=== PATIENT | female | born 1965 | race African-American/Black ===

== ENCOUNTER 2017-06-04 08:00 | Outpatient (CLI) | payer BC, OTHER ==
[2017-06-04] MEDS ORDERED: Gadobenate Dimeglumine 529 MG/1 ML (20ML VIAL) ONE (12:22)
== END 2017-06-04 08:01 | disposition home or self-care (01) ==
LOC: BICMRI 08:00
PROVIDERS: ATTEND Orthopaedic Surgery Hand Surgery
DX: M67.431 Ganglion, right wrist (principal)
CPT/HCPCS: A9579

== ENCOUNTER 2017-06-08 09:32 | Outpatient (CLI) | payer BC, OTHER ==
[2017-06-08 11:15] LABS: #Basophils 0.1 thou/uL (0.0-0.2); #Eosinphils 0.2 thou/uL (0.0-0.7); #Lymphocytes 1.5 thou/uL (1.20-3.40); #Monocytes 0.5 thou/uL (0.11-0.59); #Neutrophils 3.8 thou/uL (1.40-6.50); %Basophils 1.4 % (0.0-1.0); %Eosinophils 2.7 % (0.0-10.0); %Lymphocytes 25.3 % (21.0-51.0); %Monocytes 7.8 % (0.0-10.0); %Neutrophils 62.8 % (42.0-75.0); Hemoglobin 12.9 g/dL (12.0-16.0); Mean Corpuscular HGB CONC 33.2 g/dL (32.0-36.0); Mean Corpuscular Hemoglobin 30.8 pg (27.0-31.0); Mean Corpuscular Volume 92.7 fl (81.0-99.0); Mean Platelet Volume 7.4 fL (7.4-10.4); Platelet Count 260 thou/uL (130-400); RBC Distribution Width 11.7 % (11.5-14.5); Red Blood Cell (RBC) Count 4.17 mill/uL (4.20-5.40)
[2017-06-08 11:31] LABS: Anion Gap 13 mmol/L (10-20); BUN (Urea Nitrogen) 13 mg/dL (9.8-20.1); Calc. Creatinine Clearance 0 mL/min (70-130); Calcium 9.8 mg/dL (7.8-10.44); Carbon Dioxide 28 mmol/L (22-29); Chloride 103 mmol/L (98-107); Estimated GFR-MDRD 88; Glucose 95 mg/dL (70-105); Potassium 3.9 mmol/L (3.5-5.1); Sodium 140 mmol/L (136-145)
--- NOTE | 2017-06-10 00:48 | EKG ---
Test Reason : Blood Pressure : / mmHG Vent. Rate : 071 BPM Atrial Rate : 071 BPM P-R Int : 154 ms QRS Dur : 070 ms QT Int : 372 ms P-R-T Axes : 061 041 034 degrees QTc Int : 404 ms Normal sinus rhythm Normal ECG No previous ECGs available Confirmed by JOSE ARMANDO RG, DR. Calvin ([id number]) on 06/10/2017 12:48:24 AM Referred By: ANDREIA Confirmed By:DR. Marixa SUÁREZ MD
== END 2017-06-08 09:33 | disposition home or self-care (01) ==
LOC: LABBT 09:32
PROVIDERS: ATTEND Orthopaedic Surgery Hand Surgery
DX: Z01.812 Encounter for preprocedural laboratory examination (principal); M67.40 Ganglion, unspecified site
CPT/HCPCS: 80048; 85025; 93005; 93010

== ENCOUNTER 2017-06-11 09:18 | Day surgery (SDC) | payer BC, OTHER ==
[2017-06-08 09:58] VITALS: BMI 28.8
[2017-06-11] MEDS ORDERED: CEFAZOLIN/Water 2 GM/20 ML SYRINGE ONE (10:13)
[2017-06-11] MEDS ORDERED: EPINEPHrine 1 MG/ML AMP ONE (12:22)
[2017-06-11] MEDS ORDERED: Bupivacaine PF 0.5% 30 ML VIAL ONE (12:22)
[2017-06-11] MEDS ORDERED: Fentanyl 100 MCG/2 ML VIAL ONE (12:24)
[2017-06-11] MEDS ORDERED: Midazolam HCl 2 mg/2 ml Vial ONE (12:24)
[2017-06-11] MEDS ORDERED: Dexamethasone 20 MG/5 ML VIAL ONE (13:20)
[2017-06-11] MEDS ORDERED: Propofol 200 MG/20 ML VIAL ONE (13:20)
[2017-06-11] MEDS ORDERED: Ketorolac Tromethamine 30 MG/ML VIAL ONE ×2 (13:20→14:05)
[2017-06-11] MEDS ORDERED: Lidocaine 1% PF 5 ML VIAL ONE (13:20)
[2017-06-11] MEDS ORDERED: PHENYLEPHRINE-NS 100 MCG/ML 10 ML SYRINGE ONE (13:20)
[2017-06-11] MEDS ORDERED: Ondansetron HCl/PF 4 MG/2 ML Vial ONE (13:20)
[2017-06-11] MEDS ORDERED: Betamet Acet/Betamet Na Ph 30 MG/5 ML VIAL ONE (13:32)
--- NOTE | 2017-06-14 11:55 | OP ---
DATE OF SERVICE: 06/11/2017 PREOPERATIVE DIAGNOSIS: Right wrist large ganglion with superficial ulnar nerve compression. POSTOPERATIVE DIAGNOSIS: Right wrist large ganglion with superficial ulnar nerve compression with th e 4 cm ganglion depth emanating from the ulnocarpal/ulna triquetral joint and with a stalk communicat ing with the fibers of the superficial ulnar nerve, all covered with fascial covering of the mass on its ulnar aspect. PROCEDURES PERFORMED: 1. Arthrotomy wrist with synovectomy. 2. Neuroplasty of his ulnar nerve. 3. Removal, via excisional biopsy technique. 4. A 4 cm ganglion, ulnocarpal wrist joint. SPECIMEN SENT: 4 cm ganglion. TOURNIQUET TIME: 18 minutes. ESTIMATED BLOOD LOSS: 10 mL. FINDINGS: Ganglion with stalk to the ulnar aspect, ulnar triquetral joint as described above and sup erficial ulnar nerve within the fascia of this mass. ANESTHESIA: MAC anesthesia, general LMA technique, of 20 mL 0.5% Marcaine total, 8 given pres urgery and 12 given post closure. Splint was applied. DESCRIPTION OF PROCEDURE: After successful anesthesia listed above, the patient had the limb prepped and draped. Time-out done appropriately. The patient then had the mass outlined with zigzag incisi on and incision carried to skin and subcutaneous tissue to resolve the mass. A 360-degree circumfere ntial dissection around the mass was accomplished and then in the volar one quarter [place] the [place], we could see the superficial ulnar nerve caught in the fascia covering of the mass. We dissected this free and performed neuroplasty to protect the nerve. Once this was done, we then moved the mass dors ally away from the volar-ulnar region where the nerve was located, from the flexor carpi ul naris tendon and followed a stalk into the ulnar aspect of the ulnocarpal joint. We then made a 3 mm opening around the stalk, removed this mass completely and inserted a specimen. Through the opening which we made in the joint, we performed synovectomy of all synovitis that was protruding and then d eflated the tourniquet. We had excellent hemostasis. Silvadene was placed on superficial ulnar nerv e with neuroplasty accomplished. We then closed the wound with interrupted 4-0 Monocryl subcutaneous and epidermal closure with interrupted simple 4-0 nylon. Bulky dressing was applied with an ulnar g utter splint, MP joints free. The patient left the operating room without evidence of anesthetic com plication or operative complication.
== END 2017-06-11 15:35 | disposition home or self-care (01) ==
LOC: SDC 09:18
PROVIDERS: ATTEND Orthopaedic Surgery Hand Surgery
PROC: 0RBN0ZZ Excision of Right Wrist Joint, Open Approach (ICD-10-PCS; principal; 2017-06-11)
PROC: 01N40ZZ Release Ulnar Nerve, Open Approach (ICD-10-PCS; principal; 2017-06-11)
DX: M67.431 Ganglion, right wrist (principal); G56.21 Lesion of ulnar nerve, right upper limb; E78.5 Hyperlipidemia, unspecified; I10 Essential (primary) hypertension; Z79.899 Other long term (current) drug therapy; Z91.041 Radiographic dye allergy status; Z90.710 Acquired absence of both cervix and uterus
CPT/HCPCS: 96372; J0171; J0702; J1885; J2250; J3010; S0020

== ENCOUNTER 2017-06-11 18:49 | Emergency (ER) | payer BC, OTHER ==
[2017-06-11] MEDS ORDERED: Thrombin 5000 UNITS/5 ML VIAL ONE ×2 (21:28→22:36)
[2017-06-11] MEDS ORDERED: Sodium Chloride 0.9% 0 ML ONE (21:28)
[2017-06-11 21:54] LABS: #Monocytes 0.1 thou/uL (0.11-0.59); #Neutrophils 9.3 thou/uL (1.40-6.50); %Basophils 0.2 % (0.0-1.0); %Eosinophils 0.1 % (0.0-10.0); %Monocytes 0.6 % (0.0-10.0); %Neutrophils 89.1 % (42.0-75.0); Hemoglobin 13.3 g/dL (12.0-16.0); Mean Corpuscular HGB CONC 32.3 g/dL (32.0-36.0); Mean Corpuscular Hemoglobin 29.6 pg (27.0-31.0); Mean Corpuscular Volume 91.7 fl (81.0-99.0); Platelet Count 287 thou/uL (130-400); RBC Distribution Width 11.8 % (11.5-14.5); Red Blood Cell (RBC) Count 4.48 mill/uL (4.20-5.40); White Blood Cell (WBC) Count 10.4 thou/uL (4.8-10.8)
[2017-06-11 22:10] LABS: PTT 32.7 SEC (22.9-36.1)
[2017-06-11 22:14] LABS: ALT (SGPT) 19 U/L (8-55); AST (SGOT) 20 U/L (5-34); Albumin 4.4 g/dL (3.5-5.0); Alkaline Phosphatase 62 U/L (40-150); Anion Gap 16 mmol/L (10-20); BUN (Urea Nitrogen) 11 mg/dL (9.8-20.1); Bilirubin, Total 0.3 mg/dL (0.2-1.2); Calc. Creatinine Clearance 0 mL/min (70-130); Calcium 9.8 mg/dL (7.8-10.44); Carbon Dioxide 23 mmol/L (22-29); Chloride 104 mmol/L (98-107); Estimated GFR-MDRD 89; Globulin 3.1 g/dL (2.4-3.5); Glucose 139 mg/dL (70-105); Potassium 3.7 mmol/L (3.5-5.1); Protein, Total 7.5 g/dL (6.0-8.3); Sodium 139 mmol/L (136-145)
--- NOTE | 2017-06-12 08:05 | CON ---
DATE OF EMERGENCY ROOM NOTE: 06/11/2017 CHIEF COMPLAINT: Right leg wound. Patient returns to the hospital, reporting that over the 7-hour period since her surgery, which ended approximately 1300 hours today 06/11/2017 where she had a ganglion removed with a 3-mm hole left in the joint capsule, and at that point she had excellent hemostasis, but she noticed that she had some blood on her dressing, splint, and Juvencio wrap when she came to the hospital. After copious attempts to obtain hemostasis by Physician Certified Medical Asst Pollo, doing an excellent job at controlling bleeding, she still complained of an "inferior wound drip", not bright red blood and not a clot. She reported eddie t the patient had palpable ulnar and radial pulse distal to the incision and did not have edema or pa in, but she could not control this bleeding. I talked to KB Abad over the phone approximately 2115 hours and told her I would be there at appro ximately 2200 hours. EXAMINATION: I arrived at approximately 2215 hours to the emergency room, where she was in no distre ss, comfortable, and when I removed her dressed, then I noticed that every approximately 30 seconds, she had a drip of a slightly dark, but thinned blood consistent with serosanguineous posture from the inferior wound edge proximal to the last suture. It never came from any other spot. When I palpate d the wound with gloves on, it did not increase the flow or egress. There was no tension to include no stretch pain. power to the digits for all function to include digit flexion, extension, abd uction, and crossover. Patient also had normal pulses distal to the incision as well as no evidence of wound tension, swelling, indeed she has hardly any swelling compared to what would might be expect ed for postoperative day #0.5. The patient had not complained of numbness or tingling. ASSESSMENT AND RECOMMENDATION: Probable either small hematoma decompression or venous bleeding, subc utaneous with assistance from the open and joint, which may be contributing to some joint fluid. Rec ommendation: Today, I have recommended ice, bulky dressing initially with Surgifoam and Gelfoam. We waited 10 minutes and then removed the dressing completely and placed Dermabond over the two distal sites; both of which distal to the respective suture. Once this was done, we visualized the wound fo r 5 minutes and not a single drop escaped. There was no undue tension. RECOMMENDATIONS: Remain in the dressing with the Gelfoam thrombin and the Surgicel with a bulky 4 x 4 for 3 to 4 days. Do not remove except under medical supervision at Dr. Maria's office. Follow up with Dr. Maria in 3 to 4 days as well for wound check. Now, she has a splint on top of the sli ghtly compressive dressing and has no undue tension. If there is tension, then has been urged to com e back to the hospital to check for bleeding into the compartment.
== END 2017-06-11 23:25 | disposition home or self-care (01) ==
LOC: ERS 18:49
DX: M96.830 Postprocedural hemorrhage of a musculoskeletal structure following a musculoskeletal system procedure (principal); E78.5 Hyperlipidemia, unspecified; I10 Essential (primary) hypertension; Z79.891 Long term (current) use of opiate analgesic; Z79.899 Other long term (current) drug therapy; M67.40 Ganglion, unspecified site
CPT/HCPCS: 80053; 85025; 85610; 85730; 88304; 96372; 99283; A4216; J0171; J0702; J1885; J2250; J3010; J3490; S0020

== ENCOUNTER 2018-05-18 10:33 | Outpatient (CLI) | payer OTHER | END 2018-05-18 10:34 | disposition home or self-care (01) | LOC: BICMAMMO 10:33 | PROVIDERS: ATTEND Family Medicine | DX: Z12.31 Encounter for screening mammogram for malignant neoplasm of breast (principal) | CPT/HCPCS: 77063; 77067 ==

== ENCOUNTER 2019-05-19 08:00 | Outpatient (CLI) | payer OTHER ==
--- NOTE | 2019-05-19 09:25 | MMO ---
Bilateral MAMMO Bilat Screen [facility]. CLINICAL HISTORY: Patient is 53 years old and is seen for screening. The patient has no family history of breast cancer. The patient has no personal history of cancer. The patient has a history of right Stereotatic Biopsy at age 33 - benign. VIEWS: The views performed were: bilateral craniocaudal with tomosynthesis and bilateral mediolateral oblique with tomosynthesis. FILMS COMPARED: The present examination has been compared to prior imaging studies performed at [facility] on 05/18/2018, and at [facility] on 05/01/2015, 05/05/2016 and 05/05/2017. This study has been interpreted with the assistance of computer-aided detection. MAMMOGRAM FINDINGS: There are scattered fibroglandular densities. There are stable benign appearing densities seen in both breasts. There are no suspicious masses, suspicious calcifications, or new areas of architectural distortion. IMPRESSION: THERE IS NO MAMMOGRAPHIC EVIDENCE OF MALIGNANCY. A ROUTINE FOLLOW-UP MAMMOGRAM IN 1 YEAR IS RECOMMENDED. THE RESULTS OF THIS EXAM WERE SENT TO THE PATIENT. ACR BI-RADS Category 2 - Benign finding MAMMOGRAPHY NOTE: 1. A negative mammogram report should not delay a biopsy if a dominant of clinically suspicious mass is present. 2. Approximately 10% to 15% of breast cancers are not detected by mammography. 3. Adenosis and dense breasts may obscure an underlying neoplasm. Reported by: MARIA ISABEL GOLDSMITH MD Electonically Signed: [id number]
== END 2019-05-19 08:01 | disposition home or self-care (01) ==
LOC: BICMAMMO 08:00
PROVIDERS: ATTEND Family Medicine
DX: Z12.31 Encounter for screening mammogram for malignant neoplasm of breast (principal)
CPT/HCPCS: 77063; 77067

== ENCOUNTER 2019-08-16 10:58 | Outpatient (CLI) | payer OTHER | END 2019-08-16 10:59 | disposition home or self-care (01) | LOC: DTY/OP 10:58 | PROVIDERS: ATTEND Surgery | DX: E66.01 Morbid (severe) obesity due to excess calories (principal) | CPT/HCPCS: 97802 ==

== ENCOUNTER 2019-09-18 13:30 | Outpatient (CLI) | payer OTHER | END 2019-09-18 13:31 | disposition home or self-care (01) | LOC: DTY/OP 13:30 | PROVIDERS: ATTEND Surgery | DX: E66.01 Morbid (severe) obesity due to excess calories (principal) | CPT/HCPCS: 97802 ==

== ENCOUNTER 2019-10-17 10:00 | Outpatient (CLI) | payer OTHER | END 2019-10-17 10:01 | disposition home or self-care (01) | LOC: DTY/OP 10:00 | PROVIDERS: ATTEND Surgery | DX: E66.01 Morbid (severe) obesity due to excess calories (principal) | CPT/HCPCS: 97802 ==

== ENCOUNTER 2019-11-21 10:00 | Outpatient (CLI) | payer OTHER | END 2019-11-21 10:01 | disposition home or self-care (01) | LOC: DTY/OP 10:00 | PROVIDERS: ATTEND Surgery | DX: E66.01 Morbid (severe) obesity due to excess calories (principal) | CPT/HCPCS: 97802 ==

== ENCOUNTER 2020-05-20 10:56 | Outpatient (CLI) | payer OTHER ==
--- NOTE | 2020-05-20 11:22 | MMO ---
Bilateral MAMMO Bilat Screen [facility]. CLINICAL HISTORY: Patient is 54 years old and is seen for screening. The patient has no family history of breast cancer. The patient has no personal history of cancer. The patient has a history of right Stereotatic Biopsy at age 33 - benign. VIEWS: The views performed were: bilateral craniocaudal with tomosynthesis and bilateral mediolateral oblique with tomosynthesis. FILMS COMPARED: The present examination has been compared to prior imaging studies performed at [facility] on 05/18/2018 and 05/19/2019, and at [facility] on 05/05/2016 and 05/05/2017. This study has been interpreted with the assistance of computer-aided detection. MAMMOGRAM FINDINGS: There are scattered fibroglandular densities. Nodularity is stable. There are no suspicious masses, suspicious calcifications, or new areas of architectural distortion. IMPRESSION: THERE IS NO MAMMOGRAPHIC EVIDENCE OF MALIGNANCY. A ROUTINE FOLLOW-UP MAMMOGRAM IN 1 YEAR IS RECOMMENDED. THE RESULTS OF THIS EXAM WERE SENT TO THE PATIENT. ACR BI-RADS Category 2 - Benign finding MAMMOGRAPHY NOTE: 1. A negative mammogram report should not delay a biopsy if a dominant of clinically suspicious mass is present. 2. Approximately 10% to 15% of breast cancers are not detected by mammography. 3. Adenosis and dense breasts may obscure an underlying neoplasm. Reported by: CHICHI MARTÍNEZ MD Electonically Signed: [id number]
== END 2020-05-20 10:57 | disposition home or self-care (01) ==
LOC: BICMAMMO 10:56
PROVIDERS: ATTEND Family Medicine
DX: Z12.31 Encounter for screening mammogram for malignant neoplasm of breast (principal)
CPT/HCPCS: 77063; 77067